=== PATIENT | female | born 1940 | race Caucasian/White ===

== ENCOUNTER → 2017-09-02 11:35 | Outpatient (CLI) | payer MEDICARE, OTHER, SELFPAY ==
--- NOTE | 2017-09-02 | DI.MRI.S_ITS ---
PROCEDURE: MR FOOT RT WO/W CON INDICATIONS: RIGHT FOOT SWELLING TECHNIQUE: Noncontrast sagittal T1 spin echo and T2 fast spin echo with fat saturation, long-axis T1 spin echo and T2 fast spin echo with fat saturation; short-axis T1 spin echo, proton density fast spin echo, and T2 fast spin echo with fat saturation through the forefoot. Post-contrast short axis, long axis, and sagittal T1 spin echo with fat saturation through the forefoot. COMPARISON: [facility], CR, XR FOOT 3VW RT, 06/04/2015, 12:20. FINDINGS: Image quality: Suboptimal related to metallic artifact overlying the hindfoot region. Bones and joints: Postoperative changes of the hindfoot and midfoot region resulting in a prominent metallic susceptibility artifact, which limits evaluation of the osseous structures within this region. However, there is no acute fracture or dislocation evident involving the forefoot structures. There are severe degenerative changes present involving the 1st and 2nd metatarsophalangeal joints with associated bony remodeling and a bony irregularity involving the periarticular bones. No definitive osseous erosions are identified. There is a joint effusion involving the 2nd metatarsophalangeal joint. No obvious erosions are evident. Postoperative changes of the 3rd metatarsal are present. An orthopedic screw is identified, resulting in susceptibility artifact at this location. No definitive abnormal bony enhancement is evident involving the forefoot joints. Soft tissues: There is a subcutaneous edema about the right forefoot are present. There is a lobular soft tissue enhancing mass identified along the plantar margin of the 1st interphalangeal joint and the 2nd metatarsophalangeal joint. Along the 1st metatarsophalangeal joint region, there is a soft tissue mass identified, which abuts the flexor hallucis longus tendon sheath and is noted to measure approximately 1.6 x 1.0 x 1.4 cm (image 18, series 5 and image 9, series 8). A lobulated soft tissue mass emanating from the region of the 2nd metatarsophalangeal joint is more difficult to measure it measures roughly 4.3 cm long by 2.1 cm deep by 1.9 cm wide (image 12, series 5 image 16, series 8). No definite additional soft tissue masses are identified. IMPRESSION: 1. Prominent degenerative changes of the right forefoot joints are more prominent involving the 1st and 2nd metatarsophalangeal joints. 2. No fractures. 3. No bony lesions are evident. No erosions or suspicious bony enhancement. 4. Vaguely enhancing soft tissue masses along the plantar margin of the interphalangeal joint of the great toe and the 2nd metatarsophalangeal joint may represent rheumatoid nodules, given the patient's history of rheumatoid arthritis. A giant cell tumor of the tendon sheath cannot be completely excluded. Followup imaging in 6-12 months is recommended. Dictated by: Jeancarlos Quarles M.D. on 09/02/2017 at 14:15 Approved by: Jeancarlos Quarles M.D. on 09/02/2017 at 14:26
--- NOTE | 2017-09-02 | DI.MRI.S_ITS ---
PROCEDURE: MR FOOT LT WO/W CON INDICATIONS: Left foot pain and swelling history of rheumatoid arthritis. TECHNIQUE: Noncontrast sagittal T1 spin echo and T2 fast spin echo with fat saturation, long-axis T1 spin echo and T2 fast spin echo with fat saturation; short-axis T1 spin echo, proton density fast spin echo, and T2 fast spin echo with fat saturation through the forefoot. Post-contrast short axis, long axis, and sagittal T1 spin echo with fat saturation through the forefoot. COMPARISON: [facility], CR, XR FOOT 3VW LT, 06/04/2015, 12:20. FINDINGS: Image quality: Diagnostic. Bones and joints: There is no acute fracture, dislocation, or suspicious osseous lesion identified involving the osseous structures of the midfoot and forefoot. There are severe degenerative changes present involving the 1st and 5th metatarsophalangeal joints, which is similar to the previous examination with areas of bony remodeling, degenerative cystic change, and joint space narrowing. Soft tissues: There is a soft tissue mass demonstrating intermediate T1 signal along the plantar aspect of the interphalangeal joint of the great toe that measures approximately 2.7 x 1.5 x 2.3 cm (image 6, series 4 and image 10, series 6). Corresponding subtle enhancement is evident on the postcontrast images. A 2nd similar appearing lesion is identified along the plantar margin of the 5th metatarsophalangeal joint, which measures approximately 2.3 x 1.3 x 1.9 cm (image 22, series 4 and image 19, series 6). This also demonstrates subtle enhancement on the postcontrast images. No additional similar appearing lesions are evident. These structures are both located within close proximity to the corresponding flexor tendon sheaths at these locations. The remainder of the soft tissues of the forefoot are otherwise within normal limits. No definite ligamentous or tendinous abnormalities are appreciated. No loculated fluid collections are evident. No significant atrophy is evident involving the imaged muscles of the forefoot. IMPRESSION: 1. Prominent degenerative changes of the left forefoot are most pronounced involving the 1st and 5th metatarsophalangeal joints. This may be on the basis of rheumatoid arthritis, given the patient's history. 2. Soft tissue lesions demonstrating subtle enhancement involving the plantar margins of the 1st and 5th metatarsophalangeal joints probably is related to the patient's known rheumatoid arthritis. A giant cell tumor of the tendon sheath cannot be completely excluded. Followup imaging in 6-12 months would be of value by MRI. Dictated by: Jeancarlos Quarles M.D. on 09/02/2017 at 14:35 Approved by: Jeancarlos Quarles M.D. on 09/02/2017 at 14:43
[2017-09-02 12:11] LABS: BUN Creatinine Ratio 18.6 (6-22); Blood Urea Nitrogen 13 mg/dL (7-17); Estimated Glomerular Filt Rate > 60.0 mL/min (>60)
== END ==
PROVIDERS: Visit Provider Podiatrist
DX: M06.9 Rheumatoid arthritis, unspecified (principal); M19.072 Primary osteoarthritis, left ankle and foot; M19.071 Primary osteoarthritis, right ankle and foot; M79.671 Pain in right foot; M79.672 Pain in left foot; M25.475 Effusion, left foot; M25.474 Effusion, right foot
CPT/HCPCS: 36415; 73720; 82565; 84520; A9579

== ENCOUNTER 2022-05-13 12:57 | Emergency (ER) | payer MEDICARE, OTHER, SELFPAY ==
[2022-05-13 13:01] VITALS: BP 163/73; PULSE 64; RESP 18; TEMP 36.6; O2SAT 95
--- NOTE | 2022-05-13 13:16 | DI.RAD.S_ITS ---
PROCEDURE: XR CHEST 2V INDICATIONS: SOB cough TECHNIQUE: 2 views of the chest were acquired. COMPARISON: None. FINDINGS: Surgical changes and devices: None. Lungs and pleura: Lungs are clear. Hyperinflation and chronic emphysematous changes are seen. No pleural effusions or pneumothorax. Mediastinum: Mediastinal contours are normal. Heart size is normal. Bones and chest wall: No suspicious bony abnormalities. Soft tissues appear unremarkable. IMPRESSION: COPD. No acute cardiopulmonary pathology. Dictated by: Jensen Tejada M.D. on 05/13/2022 at 13:17 Approved by: Jensen Tejada M.D. on 05/13/2022 at 13:17
--- NOTE | 2022-05-13 13:29 | ED_ITS ---
HPI - SOB/Dyspnea <Padmaja Houston PA-C - Last Filed: 05/13/22 20:45> General Chief Complaint: Shortness of Breath/Dyspnea Stated Complaint: sent by elle lehman SOB Time Seen by Provider: 05/13/22 13:19 Source: patient Mode of arrival: Ambulatory History of Present Illness HPI Narrative: 82-year-old female with a history of small-bowel obstruction with resection presents with concern for fatigue, a cough and feeling somewhat short of breath with exertion over the past 2 or 3 days. Patient states it is unusual for her to feel short of breath with exertion, she does feel that she has maybe had some mild swelling in her feet but has not noticed any weight gain or swelling of her ankles or anywhere else. She states the cough has been bothersome as it is going on 24 hours a day she is been taking Mucinex and occasionally fisherman's friend lozenges. She endorses chronic intermittent loose stools which have been unchanged for her. She states it is somewhat productive with mucus coming up. She denies fevers, chills, loss of appetite, abdominal pain, chest pain or any other symptoms. Patient does state that she has a friend that recently tested positive for COVID but otherwise has not had sick contacts. Pt states she went to [facility] and was seen there and had a negative COVID flu test but they did a 12 lead that they thought was concerning due to some depression changes and sent her here for further evaluation. Related Data Previous Rx's Medication Instructions Recorded benzonatate 100 mg capsule 100 mg PO TID PRN cough 7 days #21 05/13/22 caps Allergies Allergy/AdvReac Type Severity Reaction Status Date / Time penicillin G [PENICILLIN G] Allergy Unknown Verified 05/13/22 13:06 Sulfa (Sulfonamide Allergy Unknown Verified 05/13/22 13:06 Antibiotics) [SULFA (SULFONAMIDE ANTIBIOTICS)] Tetracyclines [TETRACYCLINES] Allergy Unknown Verified 05/13/22 13:06 Review of Systems <Padmaja Houston PA-C - Last Filed: 05/13/22 20:45> Review of Systems Narrative: Unremarkable except as noted in the HPI Patient History <Padmaja Houston PA-C - Last Filed: 05/13/22 20:45> Social History Smoking Status: Never smoker Smoking Status: Never smoker alcohol intake frequency: 0-2 drinks per day Substance Use Type: does not use Exam <Padmaja Houston PA-C - Last Filed: 05/13/22 20:45> Narrative Exam Narrative: GENERAL: 82 year old patient appears stated age. Well-developed patient, in mild distress, well-appearing. HEAD: Atraumatic. Normocephalic. EYES: Pupils equal round and reactive. Extraocular motions intact. No scleral icterus. No injection or drainage. ENT: Nose without bleeding, purulent drainage. Throat without erythema, tonsillar hypertrophy or exudate. Airway patent. NECK: Trachea midline. Non tender CARDIOVASCULAR: Regular rate and rhythm without murmurs, gallops, or rubs. RESPIRATORY: Clear to auscultation. Breath sounds equal bilaterally. No wheezes, rales, or rhonchi. GASTROINTESTINAL: Abdomen soft, non-tender, nondistended. EXTREMITIES: Arthritic changes to MTP joints/valgus deformity. No edema or joint tenderness. BACK: Nontender without deformity or crepitance. No flank tenderness. NEURO: AOx3. SKIN: No rash or erythema of visible areas Initial Vital Signs Initial Vital Signs: Vital Signs Temperature 97.9 F 05/13/22 13:01 Pulse Rate 64 05/13/22 13:01 Respiratory Rate 18 05/13/22 13:01 Blood Pressure 163/73 H 05/13/22 13:01 Pulse Oximetry 95 05/13/22 13:01 Oxygen Delivery Method Room Air 05/13/22 13:01 <Riaz Mares DO - Last Filed: 05/17/22 19:40> Initial Vital Signs Initial Vital Signs: Vital Signs Temperature 97.9 F 05/13/22 13:01 Pulse Rate 64 05/13/22 13:01 Respiratory Rate 18 05/13/22 13:01 Blood Pressure 163/73 H 05/13/22 13:01 Pulse Oximetry 95 05/13/22 13:01 Oxygen Delivery Method Room Air 05/13/22 13:01 Scores <Padmaja Houston PA-C - Last Filed: 05/13/22 20:45> HEART Score Heart Score history: Slightly Suspicious Heart Score EKG: Normal Heart Score Age: > or = 65 years old Heart Score risk factors: No known risk factors Heart Score troponin: < or = to normal limit Heart Score Total: 2 <Riaz Mares DO - Last Filed: 05/17/22 19:40> HEART Score Heart Score Total: 2 Course <Padmaja Houston PA-C - Last Filed: 05/13/22 20:45> Course Course Narrative: Did discuss the results of labs thus far and the patient's EKG with her, discussed options noting that her chest x-ray suggestive of chronic mild emphysema/COPD, she is a retired RN and dis-prefers taking steroid medicine, but is interested in cough medicine. Labs are generally looking good however she still has respiratory panel pending. 1445 Orders Ordered: Discontinued Medications Benzonatate (Benzonatate 100 Mg Capsule) 100 mg PO NOW ONE Stop: 05/13/22 16:10 Last Admin: 05/13/22 16:20 Dose: 100 mg Documented By: RADHA Vital Signs Vital signs: Vital Signs - 8 hr 05/13/22 13:01 05/13/22 15:19 05/13/22 16:23 Temperature 97.9 F Pulse Rate 64 85 67 Respiratory Rate 18 18 18 Blood Pressure 163/73 H 175/74 H 180/77 H Pulse Oximetry 95 96 98 Oxygen Delivery Method Room Air Room Air Room Air <Riaz Mares DO - Last Filed: 05/17/22 19:40> Orders Ordered: Discontinued Medications Benzonatate (Benzonatate 100 Mg Capsule) 100 mg PO NOW ONE Stop: 05/13/22 16:10 Last Admin: 05/13/22 16:20 Dose: 100 mg Documented By: RADHA Vital Signs Vital signs: Vital Signs - 8 hr 05/13/22 13:01 05/13/22 15:19 05/13/22 16:23 Temperature 97.9 F Pulse Rate 64 85 67 Respiratory Rate 18 18 18 Blood Pressure 163/73 H 175/74 H 180/77 H Pulse Oximetry 95 96 98 Oxygen Delivery Method Room Air Room Air Room Air MDM - SOB/Dyspnea <Padmaja Houston PA-C - Last Filed: 05/13/22 20:45> Differential Diagnosis Differential diagnosis: Likely acute exacerbation of chronic obstructive airways disease, community acquired pneumonia and other (Viral URI, CHF, CT) Medical Records Attestation: I reviewed the patient's medical records. Lab Data Attestation: I reviewed the patient's lab results. Lab results narrative: Coronavirus OC 43 positive on respiratory panel 05/13/22 13:20 05/13/22 13:20 Labs: Lab Results 05/13/22 05/13/22 05/13/22 Range/Units 13:20 13:20 13:20 WBC 8.3 (4.5-11.0) X10^3/uL RBC 3.89 L (4.0-5.2) X10^6/uL Hgb 12.1 (12.0-16.0) g/dL Hct 36.8 (36-46) % MCV 94.7 (80-100) fL MCH 31.1 (26-34) PG MCHC 32.8 (30-36) % RDW 15.9 H (11.6-14.8) % Plt Count 179 (150-400) X10^3/uL Neut % (Auto) 83.9 H (50-75) % Lymph % (Auto) 8.6 L (25-40) % [place] % (Auto) 5.9 (3-14) % Eos % (Auto) 1.1 L (2-4) % Baso % (Auto) 0.5 (0-2) % Neut # (Auto) 6900 (4135-4738) /uL Lymph # (Auto) 700 L (1861-8097) /uL [place] # (Auto) 500 (0-900) /uL Eos # (Auto) 100 (0-450) /uL Baso # (Auto) 0 (0-100) /uL PT 13.1 H (10.1-12.7) SECONDS INR 1.1 (0.9-1.3) Sodium 133 L (137-145) mmol/L Potassium 3.9 (3.4-5.1) mmol/L Chloride 101 (98-107) mmol/L Carbon Dioxide 26 (22-32) mmol/L BUN 16 (7-17) mg/dL Creatinine 0.37 L (0.52-1.04) mg/dL Estimated GFR > 60 (>60) mL/min BUN/Creatinine Ratio 43.2 H (6-22) Glucose 115 H (80-110) mg/dL Lactate (0.7-2.1) mmol/L Calcium 9.0 (8.4-10.2) mg/dL Total Bilirubin 0.5 (0.2-1.3) mg/dL AST 52 H (14-36) IU/L ALT 40 H (<35) IU/L Alkaline Phosphatase 58 (38-126) U/L Troponin I < 0.012 (0.01-0.034) ng/mL NT-Pro-B Natriuret Pep 359 (<450) pg/mL Total Protein 6.7 (6.3-8.2) g/dL Albumin 3.8 (3.5-5.0) g/dL Globulin 2.9 (1.7-4.1) g/dL Albumin/Globulin Ratio 1.3 (1.0-2.8) Chlamy pneumoniae PCR (Not Detect) Adenovirus (PCR) (Not Detect) B. pertussis DNA (PCR) (Not Detecte) B.parapertussis DNA PCR (Not Detecte) Coronavirus OC43 (PCR) (Not Detect) Coronavirus HKU1 (PCR) (Not Detect) Coronavirus 229E (PCR) (Not Detect) SARS-CoV-2 (PCR) (Not Detecte) Coronavirus NL63 (PCR) (Not Detect) Human Metapneumovir PCR (Not Detect) Influenza Type A (PCR) (Not Detect) Influenza Type B (PCR) (Not Detect) M. pneumoniae (PCR) (Not Detect) Parainfluenza 1 (PCR) (Not Detect) Parainfluenza 2 (PCR) (Not Detect) Parainfluenza 3 (PCR) (Not Detect) Parainfluenza 4 (PCR) (Not Detect) RSV (PCR) (Not Detect) Entero/Rhino (PCR) (Not Detect) 05/13/22 05/13/22 Range/Units 13:20 14:47 WBC (4.5-11.0) X10^3/uL RBC (4.0-5.2) X10^6/uL Hgb (12.0-16.0) g/dL Hct (36-46) % MCV (80-100) fL MCH (26-34) PG MCHC (30-36) % RDW (11.6-14.8) % Plt Count (150-400) X10^3/uL Neut % (Auto) (50-75) % Lymph % (Auto) (25-40) % [place] % (Auto) (3-14) % Eos % (Auto) (2-4) % Baso % (Auto) (0-2) % Neut # (Auto) (8336-5804) /uL Lymph # (Auto) (0955-7451) /uL [place] # (Auto) (0-900) /uL Eos # (Auto) (0-450) /uL Baso # (Auto) (0-100) /uL PT (10.1-12.7) SECONDS INR (0.9-1.3) Sodium (137-145) mmol/L Potassium (3.4-5.1) mmol/L Chloride (98-107) mmol/L Carbon Dioxide (22-32) mmol/L BUN (7-17) mg/dL Creatinine (0.52-1.04) mg/dL Estimated GFR (>60) mL/min BUN/Creatinine Ratio (6-22) Glucose (80-110) mg/dL Lactate 1.1 (0.7-2.1) mmol/L Calcium (8.4-10.2) mg/dL Total Bilirubin (0.2-1.3) mg/dL AST (14-36) IU/L ALT (<35) IU/L Alkaline Phosphatase (38-126) U/L Troponin I (0.01-0.034) ng/mL NT-Pro-B Natriuret Pep (<450) pg/mL Total Protein (6.3-8.2) g/dL Albumin (3.5-5.0) g/dL Globulin (1.7-4.1) g/dL Albumin/Globulin Ratio (1.0-2.8) Chlamy pneumoniae PCR Not detected (Not Detect) Adenovirus (PCR) Not detected (Not Detect) B. pertussis DNA (PCR) Not detected (Not Detecte) B.parapertussis DNA PCR Not detected (Not Detecte) Coronavirus OC43 (PCR) Detected H (Not Detect) Coronavirus HKU1 (PCR) Not detected (Not Detect) Coronavirus 229E (PCR) Not detected (Not Detect) SARS-CoV-2 (PCR) Not detected (Not Detecte) Coronavirus NL63 (PCR) Not detected (Not Detect) Human Metapneumovir PCR Not detected (Not Detect) Influenza Type A (PCR) Not detected (Not Detect) Influenza Type B (PCR) Not detected (Not Detect) M. pneumoniae (PCR) Not detected (Not Detect) Parainfluenza 1 (PCR) Not detected (Not Detect) Parainfluenza 2 (PCR) Not detected (Not Detect) Parainfluenza 3 (PCR) Not detected (Not Detect) Parainfluenza 4 (PCR) Not detected (Not Detect) RSV (PCR) Not detected (Not Detect) Entero/Rhino (PCR) Not detected (Not Detect) Imaging Data Chest x-ray: My Impression: I agree with radiologist's interpretation of the imaging Radiologist's Impression: [address] [id number] XRay Report Signed Patient: Ирина Serrano MR#: [id number] : 1940 Acct:[id number] Age/Sex: 82 / F Date of Service: 05/13/22 Loc: ED Accession Number: [id number] ?? Procedure: XR chest 2V Ordering Provider: Padmaja Huoston P.A-C PROCEDURE:? XR CHEST 2V ? INDICATIONS:? SOB cough ? TECHNIQUE:? 2 views of the chest were acquired.? ? COMPARISON:? None. ? FINDINGS:? ? Surgical changes and devices:? None.? ? Lungs and pleura:? Lungs are clear.? Hyperinflation and chronic emphysematous changes are seen.? No pleural effusions or pneumothorax.? ? Mediastinum:? Mediastinal contours are normal.? Heart size is normal.? ? Bones and chest wall:? No suspicious bony abnormalities.? Soft tissues appear unremarkable.? ? IMPRESSION:? COPD.? No acute cardiopulmonary pathology. ? ? Dictated by: Jensen Tejada M.D. on 05/13/2022 at 13:17 ? ? Approved by: Jensen Tejada M.D. on 05/13/2022 at 13:17?? ECG Data Attestation: I personally reviewed and interpreted this ECG as follows: Interpretation: Heart rate 61, normal sinus rhythm, T-wave inversions in lead III, V1 biphasic T-wave lead V3 otherwise unremarkable EKG with a no ectopy or ST changes noted Treatment and disposition Shared decision making:: Shared decision-making was used in determining the patient's evaluation today in the emergency department and her plan for outpatient follow-up and treatment MDM Narrative Medical decision making narrative: This is a rather well-appearing 82-year-old female who presents with concern for 3-4 days of persistent bothersome wet sounding cough sent by [employer] after finding negative flu and COVID and an EKG that they felt was concerning for possible ST depression. EKG today in the emergency department is unremarkable, cardiac workup labs including BNP is performed given the patient's age and report of cough and shortness of breath recently. This returns unremarkable and given that she is not had any chest pain and her symptoms have been persistent for 3-4 days repeat troponins are not obtained. Respiratory viral panel is obtained. Did discuss with her possibly treating her with a course of steroids given emphysematous changes noted on her x-ray she does have a distant 13 year history of smoking but denied any diagnosis of COPD. Patient stated she did not want to take any steroid medication, she is interested in receiving cough medicine for her bothersome cough. Based on labs and chest x- ray as well as exam, low suspicion for a pneumonia and do not feel that antibiotics are warranted. Patient's respiratory panel did come back positive for coronavirus OC 43, which likely explains her symptoms. Patient is prescribed benzonatate advised to follow up closely with primary care, return precautions provided, follow-up plan discussed, all questions answered. <Riaz Mares, - Last Filed: 05/17/22 19:40> Lab Data Labs: Lab Results 05/13/22 05/13/22 05/13/22 Range/Units 13:20 13:20 13:20 WBC 8.3 (4.5-11.0) X10^3/uL RBC 3.89 L (4.0-5.2) X10^6/uL Hgb 12.1 (12.0-16.0) g/dL Hct 36.8 (36-46) % MCV 94.7 (80-100) fL MCH 31.1 (26-34) PG MCHC 32.8 (30-36) % RDW 15.9 H (11.6-14.8) % Plt Count 179 (150-400) X10^3/uL Neut % (Auto) 83.9 H (50-75) % Lymph % (Auto) 8.6 L (25-40) % [place] % (Auto) 5.9 (3-14) % Eos % (Auto) 1.1 L (2-4) % Baso % (Auto) 0.5 (0-2) % Neut # (Auto) 6900 (0798-0282) /uL Lymph # (Auto) 700 L (4789-9028) /uL [place] # (Auto) 500 (0-900) /uL Eos # (Auto) 100 (0-450) /uL Baso # (Auto) 0 (0-100) /uL PT 13.1 H (10.1-12.7) SECONDS INR 1.1 (0.9-1.3) Sodium 133 L (137-145) mmol/L Potassium 3.9 (3.4-5.1) mmol/L Chloride 101 (98-107) mmol/L Carbon Dioxide 26 (22-32) mmol/L BUN 16 (7-17) mg/dL Creatinine 0.37 L (0.52-1.04) mg/dL Estimated GFR > 60 (>60) mL/min BUN/Creatinine Ratio 43.2 H (6-22) Glucose 115 H (80-110) mg/dL Lactate (0.7-2.1) mmol/L Calcium 9.0 (8.4-10.2) mg/dL Total Bilirubin 0.5 (0.2-1.3) mg/dL AST 52 H (14-36) IU/L ALT 40 H (<35) IU/L Alkaline Phosphatase 58 (38-126) U/L Troponin I < 0.012 (0.01-0.034) ng/mL NT-Pro-B Natriuret Pep 359 (<450) pg/mL Total Protein 6.7 (6.3-8.2) g/dL Albumin 3.8 (3.5-5.0) g/dL Globulin 2.9 (1.7-4.1) g/dL Albumin/Globulin Ratio 1.3 (1.0-2.8) Chlamy pneumoniae PCR (Not Detect) Adenovirus (PCR) (Not Detect) B. pertussis DNA (PCR) (Not Detecte) B.parapertussis DNA PCR (Not Detecte) Coronavirus OC43 (PCR) (Not Detect) Coronavirus HKU1 (PCR) (Not Detect) Coronavirus 229E (PCR) (Not Detect) SARS-CoV-2 (PCR) (Not Detecte) Coronavirus NL63 (PCR) (Not Detect) Human Metapneumovir PCR (Not Detect) Influenza Type A (PCR) (Not Detect) Influenza Type B (PCR) (Not Detect) M. pneumoniae (PCR) (Not Detect) Parainfluenza 1 (PCR) (Not Detect) Parainfluenza 2 (PCR) (Not Detect) Parainfluenza 3 (PCR) (Not Detect) Parainfluenza 4 (PCR) (Not Detect) RSV (PCR) (Not Detect) Entero/Rhino (PCR) (Not Detect) 05/13/22 05/13/22 Range/Units 13:20 14:47 WBC (4.5-11.0) X10^3/uL RBC (4.0-5.2) X10^6/uL Hgb (12.0-16.0) g/dL Hct (36-46) % MCV (80-100) fL MCH (26-34) PG MCHC (30-36) % RDW (11.6-14.8) % Plt Count (150-400) X10^3/uL Neut % (Auto) (50-75) % Lymph % (Auto) (25-40) % [place] % (Auto) (3-14) % Eos % (Auto) (2-4) % Baso % (Auto) (0-2) % Neut # (Auto) (6100-4427) /uL Lymph # (Auto) (9176-9374) /uL [place] # (Auto) (0-900) /uL Eos # (Auto) (0-450) /uL Baso # (Auto) (0-100) /uL PT (10.1-12.7) SECONDS INR (0.9-1.3) Sodium (137-145) mmol/L Potassium (3.4-5.1) mmol/L Chloride (98-107) mmol/L Carbon Dioxide (22-32) mmol/L BUN (7-17) mg/dL Creatinine (0.52-1.04) mg/dL Estimated GFR (>60) mL/min BUN/Creatinine Ratio (6-22) Glucose (80-110) mg/dL Lactate 1.1 (0.7-2.1) mmol/L Calcium (8.4-10.2) mg/dL Total Bilirubin (0.2-1.3) mg/dL AST (14-36) IU/L ALT (<35) IU/L Alkaline Phosphatase (38-126) U/L Troponin I (0.01-0.034) ng/mL NT-Pro-B Natriuret Pep (<450) pg/mL Total Protein (6.3-8.2) g/dL Albumin (3.5-5.0) g/dL Globulin (1.7-4.1) g/dL Albumin/Globulin Ratio (1.0-2.8) Chlamy pneumoniae PCR Not detected (Not Detect) Adenovirus (PCR) Not detected (Not Detect) B. pertussis DNA (PCR) Not detected (Not Detecte) B.parapertussis DNA PCR Not detected (Not Detecte) Coronavirus OC43 (PCR) Detected H (Not Detect) Coronavirus HKU1 (PCR) Not detected (Not Detect) Coronavirus 229E (PCR) Not detected (Not Detect) SARS-CoV-2 (PCR) Not detected (Not Detecte) Coronavirus NL63 (PCR) Not detected (Not Detect) Human Metapneumovir PCR Not detected (Not Detect) Influenza Type A (PCR) Not detected (Not Detect) Influenza Type B (PCR) Not detected (Not Detect) M. pneumoniae (PCR) Not detected (Not Detect) Parainfluenza 1 (PCR) Not detected (Not Detect) Parainfluenza 2 (PCR) Not detected (Not Detect) Parainfluenza 3 (PCR) Not detected (Not Detect) Parainfluenza 4 (PCR) Not detected (Not Detect) RSV (PCR) Not detected (Not Detect) Entero/Rhino (PCR) Not detected (Not Detect) Discharge Plan Departure Patient Disposition: Home Clinical Impression: Coronavirus infection, Cough Activity Restrictions/Additional Instructions: Thank you for letting us be part of your care today in the emergency department. Your viral panel did come back positive for 1 of the common cold viruses it is a type of coronavirus but it is not COVID. This likely explains her symptoms. I did prescribed some cough medicine for you which I hope is helpful. We did discuss possibly doing some steroid medicine given that you have a distant smoking history and your x-ray today was suggestive of some chronic emphysematous type changes, but you declined this. We also evaluated you for possible heart problem given you were sent here with concern for this from would be health. This evaluation returned looking fine. Please follow-up closely with your primary care provider and monitor for new or worsening symptoms do not hesitate to seek care if you feel you have new or worsening symptoms. There is no evidence of an emergent or life threatening illness at this time, but follow up with your doctor in 1-2 days is recommended nonetheless to continue to rule out serious underlying causes of your symptoms. Please call the office for an appointment. Please return to the Emergency Department for any worsening or persistent symptoms. Please take medications as directed. Prescriptions: New benzonatate 100 mg capsule 100 mg PO TID PRN (Reason: cough) 7 Days Qty: 21 1RF Stand Alone Forms: Patient Portal/API <Riaz Mares, DO - Last Filed: 05/17/22 19:40> Cosign ED Attending Cosignature Attestation: Dr Mares Co-Sign Statement: I was available for consultation during this patient's emergency department visit. This chart is signed by myself for administrative purposes only. I did not have direct contact with this patient during this visit. They were seen independently by the APC.
[2022-05-13 13:36] LABS: Add Manual Diff / Slide Review NO; Basophils Absolute Auto 0 /uL (0-100); Basophils Percent Auto 0.5 % (0-2); Eosinophils Absolute Auto 100 /uL (0-450); Eosinophils Percent Auto 1.1 % (2-4); Hematocrit 36.8 % (36-46); Hemoglobin 12.1 g/dL (12.0-16.0); Lymphocytes Absolute Auto 700 /uL (1100-4500); Lymphocytes Percent Auto 8.6 % (25-40); Mean Corpuscular HGB Conc 32.8 % (30-36); Mean Corpuscular Hemoglobin 31.1 PG (26-34); Mean Corpuscular Volume 94.7 fL (80-100); Monocytes Absolute Auto 500 /uL (0-900); Monocytes Percent Auto 5.9 % (3-14); Neutrophils Absolute Auto 6900 /uL (1500-7000); Neutrophils Percent Auto 83.9 % (50-75); Platelet Count 179 X10^3/uL (150-400); Red Blood Cell Count 3.89 X10^6/uL (4.0-5.2); Red Cell Distribution Width 15.9 % (11.6-14.8); White Blood Cell Count 8.3 X10^3/uL (4.5-11.0)
[2022-05-13 13:51] LABS: Alanine Aminotransferase 40 IU/L (<35); Albumin 3.8 g/dL (3.5-5.0); Albumin Globulin Ratio 1.3 (1.0-2.8); Alkaline Phosphatase 58 U/L (38-126); Aspartate Aminotransferase 52 IU/L (14-36); BUN Creatinine Ratio 43.2 (6-22); Bilirubin Total 0.5 mg/dL (0.2-1.3); Blood Urea Nitrogen 16 mg/dL (7-17); Carbon Dioxide 26 mmol/L (22-32); Chloride 101 mmol/L (98-107); Estimated Glomerular Filt Rate > 60 mL/min (>60); Globulin 2.9 g/dL (1.7-4.1); Glucose 115 mg/dL (80-110); HEMOLYSIS 20 (0-50); INR 1.1 (0.9-1.3); Potassium 3.9 mmol/L (3.4-5.1); Prothrombin Time 13.1 SECONDS (10.1-12.7); Sodium 133 mmol/L (137-145); Total Protein 6.7 g/dL (6.3-8.2)
[2022-05-13 13:52] LABS: Lactate (Lactic Acid) 1.1 mmol/L (0.7-2.1)
[2022-05-13 14:03] LABS: NT-proBNP (BNP-Adult 18+) 359 pg/mL (<450); Troponin I < 0.012 ng/mL (0.01-0.034)
[2022-05-13 15:19] VITALS: BP 175/74; PULSE 85; RESP 18; O2SAT 96
[2022-05-13 15:40] LABS: Adenovirus Not Detected (Not Detect); B. parapertussis Not Detected (Not Detecte); Bordetella pertussis Not Detected (Not Detecte); Chlamydophila pneumoniae Not Detected (Not Detect); Coronavirus 229E Not Detected (Not Detect); Coronavirus HKU1 Not Detected (Not Detect); Coronavirus NL 63 Not Detected (Not Detect); Coronavirus OC43 Detected (Not Detect); Human Metapneumovirus Not Detected (Not Detect); Human Rhinovirus/Enterovirus Not Detected (Not Detect); Influenza A Not Detected (Not Detect); Influenza B Not Detected (Not Detect); Mycoplasma pneumoniae Not Detected (Not Detect); Parainfluenza Virus 1 Not Detected (Not Detect); Parainfluenza Virus 2 Not Detected (Not Detect); Parainfluenza Virus 3 Not Detected (Not Detect); Parainfluenza Virus 4 Not Detected (Not Detect); Respiratory Syncytial Virus Not Detected (Not Detect); SARS- CoV-2 Not Detected (Not Detecte)
[2022-05-13] MEDS: BENZONATATE 100 MG CAPSULE PO (16:20)
[2022-05-13 16:23] VITALS: BP 180/77; PULSE 67; RESP 18; O2SAT 98
== END 2022-05-13 16:23 | disposition home or self-care (01) ==
PROVIDERS: Emergency Medicine; Emergency Provider Student in an Organized Health Care Education/Training Program
DX: B34.2 Coronavirus infection, unspecified (principal); R05.9 Cough, unspecified; R03.0 Elevated blood-pressure reading, without diagnosis of hypertension; R06.02 Shortness of breath
CPT/HCPCS: 36415; 71046; 80053; 83605; 83880; 84484; 85025; 85610; 87633; 93005; 93010; 99283; 99284